=== PATIENT | male | born 1980 | race Caucasian/White ===

== ENCOUNTER 2019-02-13 11:17 | Inpatient (IN) | payer MEDICAID, OTHER ==
[~2019-02-13] VITALS: Ht 195.6 cm; Wt 72.6 kg
[2019-02-13] MEDS ORDERED: SODIUM CHLORIDE 0.9% 1,000 ML IV ONE (12:51)
[2019-02-13 13:51] LABS: EOSINOPHILS % 3.1 % (0.0-5.0); HEMATOCRIT. 30.5 % (42.0-52.0); HEMOGLOBIN. 10.3 g/dL (14.0-18.0); LYMPHOCYTES % 31.5 % (20.0-50.0); MEAN CORPUSCULAR VOLUME 97.6 fL (80.0-94.0); MEAN PLATELET VOLUME 9.8 fl (7.4-10.4); MONOCYTES % 12.5 % (2.0-8.0); NEUTROPHILS % 51.9 % (40.0-76.0); RED BLOOD CELL COUNT 3.12 mill/uL (4.7-6.1); RED CELL DISTRIBUTION WIDTH 17.7 % (11.6-14.6)
[2019-02-13 13:52] LABS: INR 1.4; PROTHROMBIN TIME 14.7 sec (9.6-11.0)
[2019-02-13 14:02] LABS: CHLORIDE 106 mEq/L (98-107)
[2019-02-13 14:06] LABS: ETHANOL BLOOD < 10 mg/dL
[2019-02-13 14:28] LABS: PLATELET ESTIMATE MARKEDLY DECREASED
[2019-02-13 14:29] LABS: PLATELET 18 x1000/uL (130-400)
[2019-02-13 14:58] LABS: CLARITY URINE CLEAR (CLEAR); COLOR URINE DARK YELLOW (YELLOW); KETONES URINE TRACE (NEGATIVE); LEUKOCYTE ESTERASE URINE TRACE (NEGATIVE); NITRITE URINE POSITIVE (NEGATIVE); OCCULT BLOOD URINE NEGATIVE (NEGATIVE); PH URINE 5.5 (4.5-8.0); PROTEIN URINE NEGATIVE (NEGATIVE); SPECIFIC GRAVITY URINE 1.033 (1.005-1.030)
[2019-02-13] MEDS ORDERED: CEFTRIAXONE 1 G PREMIX 50 ML IV ONE (16:30)
[2019-02-13] MEDS ORDERED: DIPHENHYDRAMINE 50MG/ML VIAL IV PRN (20:30)
[2019-02-13] MEDS ORDERED: MAGNESIUM/ALUMINUM HYDROXIDE/SIMETHICONE 30ML UDC PO PRN (20:30)
[2019-02-13] MEDS ORDERED: ACETAMINOPHEN 650MG SUPP PR PRN (20:30)
[2019-02-13] MEDS ORDERED: ACETAMINOPHEN 650MG/20.3ML UDC GT PRN (20:30)
[2019-02-13] MEDS ORDERED: ACETAMINOPHEN 325MG TABLET PO PRN (20:30)
[2019-02-13] MEDS ORDERED: ONDANSETRON HCL 4MG/2ML INJ IV PRN (20:30)
[2019-02-13] MEDS ORDERED: CLONIDINE 0.1MG TABLET PO PRN (20:30)
[2019-02-13] MEDS ORDERED: NA PHOS,M-B/NA PHOS,DI-BA ENEMA 118ML PR PRN (20:30)
[2019-02-13] MEDS ORDERED: DOCUSATE SODIUM 100MG CAPSULE PO PRN (20:30)
[2019-02-13] MEDS ORDERED: IPRATROPIUM/ALBUTEROL 0.5-3(2.5)MG/3ML NEB HHN PRN (20:30)
[2019-02-13] MEDS ORDERED: GUAIFENESIN 200MG/10ML SUGAR FREE UDC PO PRN (20:30)
[2019-02-13 21:00] VITALS: BP 117/70
[2019-02-14] VITALS: BP 100/52
[2019-02-14] MEDS: SODIUM CHLORIDE 0.9% INJ 3ML FLUSH IVF SCH ×3 (00:58→14:00)
[2019-02-14] MEDS: MULTIVITAMINS,THER W-MINERALS TABLET PO SCH ×2 (00:58→09:26)
[2019-02-14] MEDS: THIAMINE HCL 100MG TABLET PO SCH ×2 (00:58→09:26)
[2019-02-14 04:00] VITALS: BP 106/58
[2019-02-14 06:43] LABS: BASOPHILS % 0.7 % (0.0-2.0); EOSINOPHILS % 3.1 % (0.0-5.0); HEMATOCRIT. 30.1 % (42.0-52.0); HEMOGLOBIN. 10.1 g/dL (14.0-18.0); LYMPHOCYTES % 33.6 % (20.0-50.0); MEAN CORPUSCULAR HEMOGLOBIN 32.8 pg (28.0-32.0); MEAN PLATELET VOLUME 10.9 fl (7.4-10.4); NEUTROPHILS % 49.6 % (40.0-76.0); RED BLOOD CELL COUNT 3.07 mill/uL (4.7-6.1); RED CELL DISTRIBUTION WIDTH 17.8 % (11.6-14.6)
[2019-02-14 06:46] LABS: PLATELET 28 x1000/uL (130-400)
[2019-02-14 07:12] LABS: CHLORIDE 106 mEq/L (98-107)
[2019-02-14] MEDS ORDERED: DEXTROSE 50% WATER 50ML SYRINGE IV PRN (07:15)
[2019-02-14] MEDS: BLOOD SUGAR DIAGNOSTIC STRIP TEST SCH ×4 (07:20→21:00)
[2019-02-14 07:29] LABS: LDL CHOLESTEROL 48 mg/dL (5-100)
[2019-02-14 07:34] LABS: HDL CHOLESTEROL 58 mg/dL (40-59)
[2019-02-14] MEDS: FOLIC ACID 1MG TABLET PO SCH (09:26)
[2019-02-14] MEDS: INSULIN LISPRO 100 UNITS/ML SUBCUT SCH ×4 (10:06→21:00)
[2019-02-14] MEDS: CHLORDIAZEPOXIDE 25MG CAPSULE PO SCH ×2 (12:55→18:20)
[2019-02-14 16:00] VITALS: BP 96/43
[2019-02-14] MEDS ORDERED: CEFTRIAXONE 1 G PREMIX 50 ML IV SCH ×3 (17:15→22:00)
[2019-02-14 20:00] VITALS: BP 111/69
[2019-02-14 21:50] LABS: INR 1.6; PROTHROMBIN TIME 15.7 sec (9.6-11.0)
[2019-02-14] MEDS ORDERED: PHYTONADIONE 10MG/ML AMP PO SCH (23:00)
[2019-02-14] MEDS ORDERED: POTASSIUM CHLORIDE 20MEQ TABLET SR PO SCH (23:00)
[2019-02-15] VITALS: BP 109/51
[2019-02-15 04:00] VITALS: BP 95/50
[2019-02-15] MEDS: SODIUM CHLORIDE 0.9% INJ 3ML FLUSH IVF SCH ×2 (06:27→14:00)
[2019-02-15] MEDS: INSULIN LISPRO 100 UNITS/ML SUBCUT SCH ×3 (07:37→17:50)
[2019-02-15] MEDS: BLOOD SUGAR DIAGNOSTIC STRIP TEST SCH ×3 (07:37→17:20)
[2019-02-15] MEDS: FOLIC ACID 1MG TABLET PO SCH (09:30)
[2019-02-15] MEDS: CHLORDIAZEPOXIDE 25MG CAPSULE PO SCH ×3 (09:30→18:39)
[2019-02-15] MEDS: MULTIVITAMINS,THER W-MINERALS TABLET PO SCH (09:30)
[2019-02-15] MEDS: THIAMINE HCL 100MG TABLET PO SCH (09:30)
[2019-02-15 16:00] VITALS: BP 115/62
[2019-02-15] MEDS ORDERED: L25 MT (17:19)
[2019-02-15 18:09] VITALS: BP 115/61
== END 2019-02-15 19:47 | disposition home or self-care (01) | DRG 661 ==
LOC: ER 11:17 → 6EST 17:07 → ENRESERV 17:26
PROVIDERS: ADMIT Family Medicine; ATTEND Family Medicine
PROC: 30233R1 Transfusion of Nonautologous Platelets into Peripheral Vein, Percutaneous Approach (ICD-10-PCS; principal; 2019-02-13)
PROC: 30233N1 Transfusion of Nonautologous Red Blood Cells into Peripheral Vein, Percutaneous Approach (ICD-10-PCS; 2019-02-13)
DX: D69.6 Thrombocytopenia, unspecified (principal); R18.8 Other ascites; K74.60 Unspecified cirrhosis of liver; F10.239 Alcohol dependence with withdrawal, unspecified; R16.1 Splenomegaly, not elsewhere classified; F10.20 Alcohol dependence, uncomplicated
CPT/HCPCS: 36415; 71045; 76700; 80061; 80320; 81003; 82962; 85049; 85384; 86850; 86900; 86945; 96365; 99285; J0696; J1200; J1815; J3430; J7030; P9034; G0480